=== PATIENT | female | born 1950 | race Caucasian/White ===

== ENCOUNTER → 2016-05-05 | Outpatient (CLI) | payer MEDICARE | LOC: OD 09:05 | DX: R06.02 Shortness of breath (principal) | CPT/HCPCS: 71020 ==

== ENCOUNTER 2016-10-22 08:50 | Emergency (ER) | payer MEDICARE ==
[2016-10-22] MEDS ORDERED: ASPIRIN 81 MG TABLET, CHEWABLE PO ONE (08:56)
[2016-10-22 09:53] LABS: ABSOLUTE LYMPHOCYTES (AUTO) 1.3 10^3/uL (0.5-4.7); ABSOLUTE MONOCYTES (AUTO) 0.4 10^3/uL (0.1-1.4); ABSOLUTE NEUT (AUTO) 1.8 10^3/uL (1.7-8.2); BASOPHILS % (AUTO) 0.7 % (0-2); EOSINOPHILS % (AUTO) 1.1 % (0-6); HEMATOCRIT 37.5 % (36.0-47.0); HEMOGLOBIN 12.8 g/dL (12.0-15.5); HGB HCT DIFFERENCE 0.9; LYMPHOCYTES % (AUTO) 35.5 % (13-45); MEAN CORPUSCULAR HEMOGLOBIN 31.1 pg (27.0-33.4); MEAN CORPUSCULAR HGB CONC 34.1 g/dL (32.0-36.0); MEAN CORPUSCULAR VOLUME 91 fl (80-97); MONOCYTES % (AUTO) 12.3 % (3-13); RED CELL DISTRIBUTION WIDTH 13.9 % (11.5-14.0); SEGMENTED NEUTROPHILS % (AUTO) 50.4 % (42-78); WHITE BLOOD COUNT 3.5 10^3/uL (4.0-10.5)
--- NOTE | 2016-10-22 10:13 | ER Document Report ---
ED Cardiac - General Information source: Patient TRAVEL OUTSIDE OF THE [place] IN LAST 30 DAYS: No - HPI Patient complains to provider of: Chest pain Chest pain radiation location: Back Cardiac risk factors: + Family history Associated symptoms: Other - see above <KATTY HUDSON - Last Filed: 10/22/16 10:07> <JOSEPH LEE - Last Filed: 10/22/16 15:14> - General Chief Complaint: Chest Pain Stated Complaint: CHEST PAIN Time Seen by Provider: 10/22/16 09:45 Notes: Patient is a 66 year old female who presents to the ED with complaints of sudden onset sharp chest pain that radiated to her back at approximately 0430 this morning. Patient states she was already awake at 0400 to go to the restroom. Patient states that she tried to change positions thinking maybe it was reflux even though it did not present the same and her normal reflux does. Patient states she had associated numbness and tingling sensation in her left arm. Patient states she took a baby aspirin and then watched TV. Patient states the pain lasted 30-45 minutes which is different from the last time she was evaluated for chest pain. Patients pain is gone now. PCP: [place] [facility] (KATTY HUDSON) - Related Data Allergies/Adverse Reactions: hydrocodone [Hydrocodone] Allergy (Verified 10/22/16 09:00) Sulfa (Sulfonamide Antibiotics) Allergy (Verified 10/22/16 09:00) Home Medications: Current Home Medications Acetaminophen 500 mg PO PRN PRN 10/22/16 [History] Aspirin [Adult Low Dose Aspirin EC] 81 mg PO DAILY 10/22/16 [History] Ca Carbonate/Vitamin D3/Vit K [Calcium + D Soft Chewable Tab] 1 tab PO DAILY [History] Calcium Carb & Citrate/Vit D3 [Calcium + D3 ER Tablet] 1 each PO PRN PRN [History] Doxycycline Hyclate 20 mg PO BID 10/22/16 [History] Gluc 2Kcl/Chondr/Davidson Hy/Hy AC [Glucosamine & Chondroitin Cap] 1 cap PO DAILY [History] Loperamide HCl [Loperamide] 2 mg PO PRN PRN 10/22/16 [History] Naproxen Sodium 220 mg PO PRN PRN 10/22/16 [History] Simvastatin 5 mg PO DAILY 10/22/16 [History] Past Medical History - General Information source: Patient - Social History Smoking Status: Never Smoker Chew tobacco use (# tins/day): No Frequency of alcohol use: None Drug Abuse: None Family History: CAD, CVA - Past Medical History Cardiac Medical History: Reports: Hx Hypercholesterolemia Renal/ Medical History: Denies: Hx Peritoneal Dialysis Past Surgical History: Reports: Hx Abdominal Surgery - hernia repair x2, Hx Hysterectomy <KATTY UHDSON - Last Filed: 10/22/16 10:07> - Social History Smoking Status: Never Smoker Cigarette use (# per day): No Smoking Education Provided: No Occupation: Retired Lives with: Spouse/Significant other Family History: CAD - The patient has an older brother who did have bypass surgery in his 60s. He was a smoker earlier in life., Other - The patient reports her father at age 84 related to a stroke. Prior to that he had had angina but never had a heart attack. Her mother at age 88 from Alzheimer's disease complications. <JOSEPH LEE - Last Filed: 10/22/16 15:14> Review of Systems - Review of Systems Constitutional: No symptoms reported EENT: No symptoms reported Cardiovascular: See HPI, Chest pain Respiratory: No symptoms reported Gastrointestinal: No symptoms reported Genitourinary: No symptoms reported Female Genitourinary: No symptoms reported Musculoskeletal: No symptoms reported Skin: No symptoms reported Hematologic/Lymphatic: No symptoms reported Neurological/Psychological: See HPI, Numbness, Tingling <KATTY HUDSON - Last Filed: 10/22/16 10:07> Physical Exam - General General appearance: Appears well, Alert In distress: None - HEENT Head: Normocephalic, Atraumatic Eyes: Normal Extraocular movements intact: Yes Pupils: PERRL Neck: No: Carotid bruit - Respiratory Respiratory status: No respiratory distress Breath sounds: Normal - Cardiovascular Rhythm: Regular Heart sounds: Normal auscultation Murmur: No - Abdominal Inspection: Normal Distension: No distension Bowel sounds: Normal Tenderness: Nontender - specifically no epigastric tenderness - Back Back: Normal - Extremities General upper extremity: Normal inspection, Normal ROM General lower extremity: Normal inspection, Normal ROM. No: Edema - Neurological Neuro grossly intact: Yes - Psychological Associated symptoms: Normal affect, Normal mood - Skin Skin Temperature: Warm Skin Moisture: Dry Skin Color: Normal <KATTY HUDSON - Last Filed: 10/22/16 10:07> - Vital signs Vitals: Temp Pulse Resp BP Pulse Ox 98.2 F 79 18 131/65 H 98 10/22/16 08:56 10/22/16 08:56 10/22/16 08:56 10/22/16 08:56 10/22/16 08:56 Course - Laboratory Result Diagrams: 10/22/16 09:35 10/22/16 09:35 <KATTY HUDSON - Last Filed: 10/22/16 10:07> - Laboratory Result Diagrams: 10/22/16 09:35 10/22/16 09:35 - Diagnostic Test Radiology reviewed: Image reviewed, Reports reviewed - No acute change on chest x-ray - EKG Interpretation by Me EKG shows normal: Sinus rhythm, Center Cross, Intervals, QRS Complexes. abnormal: ST-T Waves - Nonspecific inferior T abnormalities Rate: Normal - 74 Rhythm: NSR When compared to previous EKG there are: No significant change - Consults Dr. Martins Time consulted: 15:05 Consulted provider: follow-up in office - Call him on his cellphone tomorrow morning to set up an appointment. <JOSEPH LEE - Last Filed: 10/22/16 15:14> - Vital Signs Vital signs: Temp Pulse Resp BP Pulse Ox 98.0 F 79 12 116/56 L 97 10/22/16 11:15 10/22/16 08:56 10/22/16 14:01 10/22/16 14:00 10/22/16 14:01 - Laboratory Laboratory results interpreted by me: 10/22/16 10/22/16 09:35 09:35 WBC 3.5 L BUN 21 H Discharge <KATTY HUDSON - Last Filed: 10/22/16 10:07> <JOSEPH LEE - Last Filed: 10/22/16 15:14> - Discharge Clinical Impression: Chest pain Qualifiers: Chest pain type: unspecified Qualified Code(s): R07.9 - Chest pain, unspecified Disposition: HOME, SELF-CARE Additional Instructions: Chest Pain of Unclear Cause: The exact cause of your chest pain isn't clear. Fortunately, there is no evidence of a dangerous medical condition. Further testing may be required to find the source of the pain. Most often, we find that this pain is coming from the chest wall -- the muscles or rib joints in the chest. But chest pain can come from the lung and lung lining, the esophagus, the heart valves or heart lining, and even the stomach or gallbladder. Rest. Eat lightly until the pain is gone. We may prescribe medicine for pain and inflammation. You should call the physician immediately if the pain radiates to the shoulder, jaw or arms; if you start to run a fever or develop a cough; or if you develop shortness of breath, or other new or alarming symptoms. CALL DR. MOSLEY ON HIS CELL PHONE TOMORROW MORNING FOR AN APPOINTMENT [phone] RETURN TO THE EMERGENCY ROOM IF ANY NEW OR WORSENING SYMPTOMS. Referrals: HERRERA MARTINS MD [ACTIVE STAFF] - 10/23/16 () Scribe Attestation: 10/22/16 15:14 I personally performed the services described in the documentation, reviewed and edited the documentation which was dictated to the scribe in my presence, and it accurately records my words and actions. (JOSEPH LEE) Scribe Documentation - Scribe Written by Una:: una Argueta, 10/22/2016, 1010 acting as scribe for :: Rosa <KATTY HUDSON - Last Filed: 10/22/16 10:07>
[2016-10-22 10:23] LABS: ALANINE AMINOTRANSFERASE 21 U/L (9-52); ALBUMIN 4.3 g/dL (3.5-5.0); ALKALINE PHOSPHATASE 50 U/L (38-126); ANION GAP 9 (5-19); ASPARTATE AMINO TRANSFERASE 28 U/L (14-36); BILIRUBIN,DIRECT 0.3 mg/dL (0.0-0.4); BILIRUBIN,TOTAL 0.6 mg/dL (0.2-1.3); BLOOD UREA NITROGEN 21 mg/dL (7-20); CARBON DIOXIDE 28 mmol/L (22-30); CHLORIDE 105 mmol/L (98-107); CREATINE KINASE 88 U/L (30-135); CREATININE RESULT 0.75 mg/dL (0.52-1.25); GLUCOSE 85 mg/dL (75-110); POTASSIUM 4.6 mmol/L (3.6-5.0); SODIUM 142.3 mmol/L (137-145); TOTAL PROTEIN 7.2 g/dL (6.3-8.2)
[2016-10-22 10:34] LABS: CREATINE KINASE MB 0.95 ng/mL (<4.55)
[2016-10-22 10:35] LABS: TROPONIN I < 0.012 ng/mL
--- NOTE | 2016-10-22 13:57 | EKG REPORT ---
SEVERITY:- ABNORMAL ECG - SINUS RHYTHM NONSPECIFIC T ABNORMALITIES, INFERIOR LEADS : Confirmed by: Hugh Agrawal MD 22-Oct-2016 13:56:37
[2016-10-22 15:27] VITALS: BP 105/66
--- NOTE | 2016-10-23 15:13 | RADIOLOGY REPORT (SQ) ---
EXAM DESCRIPTION: CHEST SINGLE VIEW COMPLETED DATE/TIME: 10/22/2016, 0955 hours REASON FOR STUDY: Chest pain COMPARISON: 05/05/2016 TECHNIQUE: AP portable chest film 10/22/2016, 955 hours LIMITATIONS: None FINDINGS: No acute infiltrates. No pleural effusion or pneumothorax. Cardiac silhouette size, fr[place], bony structures unremarkable. IMPRESSION: No acute findings
== END 2016-10-22 15:32 | disposition home or self-care (01) ==
LOC: ER 08:50
DX: R07.9 Chest pain, unspecified (principal); R20.0 Anesthesia of skin; R20.2 Paresthesia of skin; Z88.5 Allergy status to narcotic agent; Z88.2 Allergy status to sulfonamides; Z82.49 Family history of ischemic heart disease and other diseases of the circulatory system; Z82.3 Family history of stroke
CPT/HCPCS: 93005; 99285; 36415; 82553; 82550; 85025; 80053; 84484; 71010; 93010; A9270